=== PATIENT | male | born 1995 | race African-American/Black ===

== ENCOUNTER 2020-09-14 10:31 | Emergency (ER) | payer SELFPAY ==
[2020-09-14 10:38] VITALS: BP 107/65; PULSE 87; TEMP 97.9; BMI 20.9
[2020-09-14] MEDS ORDERED: AZITHROMYCIN 250 MG TABLET PO ONE (11:27)
[2020-09-14] MEDS ORDERED: AZITHROMYCIN 250 MG TABLET ONE (11:29)
[2020-09-14 11:39] LABS: PH,URINE 6.5 (5.0-8.0); URINE APPEARANCE CLEAR; URINE BILIRUBIN NEGATIVE (NEGATIVE); URINE COLOR YELLOW; URINE GLUCOSE (UA) NEGATIVE (NEGATIVE); URINE KETONE NEGATIVE (NEGATIVE); URINE LEUK ESTERASE NEGATIVE (NEGATIVE); URINE NITRITE NEGATIVE (NEGATIVE); URINE PROTEIN NEGATIVE (NEGATIVE)
== END 2020-09-14 11:35 | disposition home or self-care (01) ==
LOC: JERFT 10:31
DX: R36.9 Urethral discharge, unspecified (principal); R30.0 Dysuria
CPT/HCPCS: 36415; 81003; 87086; 87491; 87591; 99284-25

== ENCOUNTER 2021-03-24 18:20 | Observation (INO) | payer OTHER ==
[2021-03-24 19:46] LABS: BASO % 1.7 % (0-2.0); EOS % 1.9 % (0-4.5); HEMATOCRIT 48.5 % (35.4-49); HEMOGLOBIN 16.5 GM/dl (11.7-16.9); LYMPH % 19.2 % (8-40); MCH 30.5 pg (25.7-33.7); MCHC 34.1 g/dl (32.0-35.9); MEAN CELL VOLUME 89.7 fl (80-96); MEAN PLT VOLUME 9.3 fl (7.5-11.1); MONO % 5.5 % (3.8-10.2); NEUT % 71.7 % (42.8-82.8); PLATELET COUNT 219 10^3/uL (134-434); RBC 5.41 M/mm3 (4.00-5.60); RDW 12.6 % (11.9-15.9)
[2021-03-24 20:22] LABS: ALBUMIN 4.6 g/dl (3.4-5.0); BILIRUBIN,TOTAL 0.5 mg/dl (0.2-1); CALCIUM 9.2 mg/dl (8.5-10); CREATININE 1.1 mg/dl (0.55-1.3); TOT PROT 8.8 g/dl (6.4-8.2)
[2021-03-24] MEDS ORDERED: VANCOMYCIN 1 GM in D5W (PRE-DOCKED) 1,000 MG/250 ML IVPB ONE (20:54)
[2021-03-24] MEDS ORDERED: VANCOMYCIN 1,000 MG VIAL (RESTRICTED TO ID ONLY) ONE (20:59)
[2021-03-24] MEDS ORDERED: PIPERACILLIN/TAZOB 3.375 GM 3.375 GM in DEXTROSE 5%-WATER - 50 ML IVPB ONE (21:10)
[2021-03-24] MEDS ORDERED: PIPERACILLIN/TAZOBACTAM 3.375 GM VIAL IVPB ONE (22:36)
[2021-03-25 01:19] VITALS: BMI 19.4
[2021-03-25] MEDS ORDERED: PIPERACILLIN/TAZOB 3.375 GM 3.375 GM in DEXTROSE 5%-WATER - 50 ML IVPB SCH (02:00)
[2021-03-25] MEDS: PIPERACILLIN/TAZOB 3.375 GM 3.375 GM in DEXTROSE 5%-WATER - 50 ML IVPB SCH ×2 (03:00→12:02)
[2021-03-25] MEDS ORDERED: PIPERACILLIN/TAZOBACTAM 3.375 GM VIAL IVPB ONE ×2 (03:04→10:23)
[2021-03-25] MEDS ORDERED: DEXTROSE 5%-WATER - 50 ML IVPB ONE ×2 (03:04→10:23)
[2021-03-25 07:04] VITALS: BP 99/51; PULSE 55; TEMP 97.6
[2021-03-25 08:05] LABS: EOS % 2.6 % (0-4.5); HEMATOCRIT 46.2 % (35.4-49); HEMOGLOBIN 15.5 GM/dl (11.7-16.9); LYMPH % 23.7 % (8-40); MCH 30.2 pg (25.7-33.7); MCHC 33.6 g/dl (32.0-35.9); MEAN CELL VOLUME 89.7 fl (80-96); MEAN PLT VOLUME 9.5 fl (7.5-11.1); MONO % 8.2 % (3.8-10.2); NEUT % 64.5 % (42.8-82.8); PLATELET COUNT 214 10^3/uL (134-434); RBC 5.15 M/mm3 (4.00-5.60); RDW 12.8 % (11.9-15.9); WHITE BLOOD COUNT 7.7 K/mm3 (4.0-10.8)
[2021-03-25 08:08] LABS: CALCIUM 8.8 mg/dl (8.5-10); CREATININE 0.9 mg/dl (0.55-1.3)
[2021-03-25] MEDS ORDERED: VANCOMYCIN 1 GM in D5W (PRE-DOCKED) 1,000 MG/250 ML IVPB ONE (09:00)
== END 2021-03-25 12:44 | disposition home or self-care (01) ==
LOC: FER 18:20 → FM/S 22:29 → UNDOADMOB 03-25 00:33 → FM/S 03-25 00:33
PROVIDERS: ADMIT Internal Medicine; ATTEND Nurse Practitioner Acute Care
PROC: 3E03329 Introduction of Other Anti-infective into Peripheral Vein, Percutaneous Approach (ICD-10-PCS; principal; 2021-03-24)
PROC: 0H9GXZZ Drainage of Left Hand Skin, External Approach (ICD-10-PCS; 2021-03-24)
DX: S61.213A Laceration without foreign body of left middle finger without damage to nail, initial encounter (principal); W50.3XXA Accidental bite by another person, initial encounter; Y93.89 Activity, other specified; Y92.9 Unspecified place or not applicable; L08.9 Local infection of the skin and subcutaneous tissue, unspecified
CPT/HCPCS: 10180; 36415; 73140-TC-LT-FY; 80048; 80053; 85025; 87040; 87070; 87205; 96365; 96367; 96375; 99285-25; C9803; G0378; U0003; U0005